=== PATIENT | female | born 1950 | race Caucasian/White ===

== ENCOUNTER → 2017-10-20 | Outpatient (CLI) | payer OTHER ==
[~2017-10-20] MED LIST: ADULT LOW DOSE81 MG PO; ANTIVERT25 MG PO; ASPIRIN EC81 M1 PO; CALCIUM 500 +1 EAC5 PO; FISH OIL 1,2001 EAC4 PO; FLONASE 0.05%50 MCG NASAL; KRILL OIL 3001 EACH PO; LIPITOR 10 MG10 M1 PO; LIPITOR10 MG PO; LISINOPRIL20 MG PO; LOPRESSOR100 MG; LOSARTAN-HCTZ1 EAC1 PO; NORVASC5 MG PO; TOPROL XL100 MG PO; TRIAMTERENE-HC1 EAC1 PO; TRIAMTERENE/HCT1 CA1; XANAX 0.5 MG0.5 M1 PO
--- NOTE | ~2017-10-20 | EKG ---
[address] [place] [address] ELECTROCARDIOGRAM REPORT Name: FERN JAIMES [id number]: 10/20/17 Attend Phys: Alka Knapp MD Discharge: Date of : 50 Report #: [id number] THIS REPORT FOR: //name// [facility] Test Date: 2017-10-20 Test Time: 11:05:24 Pat Name: FERN JAIMES Department: Room: Gender: F Soccer Coach: Kita JARAMILLO : 1950 Requested By: Alka Knapp Order Number: [id number] MD: Logan Juárez Measurements Intervals [place] Rate: 68 P: 64 [place]: 163 QRS: -13 QRSD: 84 T: 64 QT: 393 QTc: 418 Interpretive Statements Sinus rhythm Normal tracing Compared to ECG 04/20/2014 15:47:07 No significant changes Electronically Signed On 10-20-2017 12:56:23 CDT by Logan Juárez [email or web address] <ELECTRONICALLY SIGNED> By: Logan Juárez MD, [facility] 10/20/17 [id number] Logan Juárez MD, FACC /EPI
[2017-10-20 11:00] LABS: CALCIUM 9.9 mg/dL (8.5-10.1); CREATININE 0.8 mg/dL (0.6-1.0); POTASSIUM 3.8 mmol/L (3.5-5.1)
== END ==
LOC: CV 07:33 → LABMALL 10:18
PROVIDERS: Anesthesiology
DX: Z01.818 Encounter for other preprocedural examination (principal); I10 Essential (primary) hypertension

== ENCOUNTER → 2018-05-03 | Outpatient (CLI) | payer OTHER | LOC: RAD 10:18 | DX: Z12.31 Encounter for screening mammogram for malignant neoplasm of breast (principal); I10 Essential (primary) hypertension; E78.5 Hyperlipidemia, unspecified ==

== ENCOUNTER → 2019-05-04 | Outpatient (CLI) | payer OTHER | LOC: RAD 02:01 | DX: Z12.31 Encounter for screening mammogram for malignant neoplasm of breast (principal) ==

== ENCOUNTER → 2019-09-07 | Outpatient (CLI) | payer OTHER | LOC: CAT 08:44 | DX: Z13.6 Encounter for screening for cardiovascular disorders (principal); E78.00 Pure hypercholesterolemia, unspecified; I25.10 Atherosclerotic heart disease of native coronary artery without angina pectoris ==

== ENCOUNTER 2020-03-15 07:02 | Inpatient (IN) | payer OTHER ==
[~2020-03-15] VITALS: Ht 160 cm; Wt 82.6 kg
[2020-03-15 07:09] VITALS: BP 140/82
[2020-03-15] MEDS ORDERED: AZITHROMYCIN 2250 MG PO (07:51)
[2020-03-15] MEDS ORDERED: ONDANSETRON HCL4 M2 PO (07:52)
[2020-03-15 07:53] LABS: HEMATOCRIT 44.1 % (37.0-47.0); HEMOGLOBIN 15.3 gm/dL (12.0-15.0); MCH 29.6 pg (26.0-34.0); MCHC 34.7 g/dL (28.0-37.0); MCV 85.4 fL (80.0-100.0); PLATELET COUNT 205 thou/uL (150-400); RBC 5.17 mil/uL (4.20-5.00); WBC 9.2 thou/uL (4.0-11.0)
--- NOTE | 2020-03-15 08:29 | EKG ---
[facility] [place] [address] ELECTROCARDIOGRAM REPORT Name: FERN JAIMES Room #: [facility].#: [id number] Admission: 03/15/20 Attend Phys: Discharge: Date of : 50 Report #: [id number] THIS REPORT FOR: cc: Eh Lozada MD, Neal A. MD Couchonnal, Luis F. MD ~ THIS REPORT FOR: //name// [facility] ED Test Date: 2020-03-15 Test Time: 07:36:28 Pat Name: FERN JAIMES Department: Room: Gender: F Summer Associate: : 1950 Requested By: Von Otero Order Number: [id number] : Hunter Adrian Measurements Intervals [place] Rate: 64 P: 30 [place]: 154 QRS: -19 QRSD: 91 T: 66 QT: 419 QTc: 433 Interpretive Statements Sinus rhythm Probable left atrial enlargement Borderline left axis deviation RSR' in V1 or V2, probably normal variant Compared to ECG 10/20/2017 11:05:24 RSR' in V1 or V2 now present Electronically Signed On 03-15-2020 8:29:04 CDT by Hunter Adrian [email or web address] <ELECTRONICALLY SIGNED> By: Hunter Adrian MD 03/15/2029 5 5 Hunter Adrian MD /EPI
[2020-03-15 08:32] LABS: ALBUMIN 3.9 g/dL (3.4-5.0); BUN 15 mg/dL (7-18); CALCIUM 8.9 mg/dL (8.5-10.1); CHLORIDE 82 mmol/L (98-107); CO2 25 mmol/L (21-32); CREATININE 0.9 mg/dL (0.6-1.0); DIRECT BILIRUBIN 0.3 mg/dL (<0.1-0.2); GLUCOSE 133 mg/dL (74-106); SGOT 17 U/L (15-37); SGPT 26 U/L (30-65); TOTAL BILIRUBIN 1.5 mg/dL (0.2-1.0); TOTAL PROTEIN 7.5 g/dL (6.4-8.2); TROPONIN-I <0.06 ng/mL (<0.06)
[2020-03-15 08:38] LABS: ANION GAP 12 mmol/L (7-16)
[2020-03-15 08:40] LABS: POTASSIUM 2.9 mmol/L (3.5-5.1); SODIUM 119 mmol/L (136-145)
[2020-03-15 09:22] VITALS: BP 138/82
[2020-03-15 09:32] VITALS: BP 138/82
[2020-03-15 11:16] LABS: URINE BILIRUBIN NEGATIVE (Negative); URINE BLOOD TRACE (Negative); URINE CLARITY CLEAR; URINE COLOR YELLOW; URINE GLUCOSE-RANDOM* NEGATIVE (Negative); URINE KETONES 1+ (Negative); URINE LEUKOCYTES-REFLEX NEGATIVE (Negative); URINE NITRITE-REFLEX NEGATIVE (Negative); URINE PROTEIN (DIPSTICK) NEGATIVE (Negative); URINE SPECIFIC GRAVITY 1.015 (1.005-1.035); URINE UROBILINOGEN 0.2 E.U./dl (0.2-1.0)
--- NOTE | 2020-03-15 11:35 | NUR ---
PT ADMITTED TO 3W, ROOM 357. PT ALERT AND OREINTED X4, DENIES CHEST PAIN, NAUSEA AND VOMITTING. PT IS ON ROOM AIR, LUNGS CLEAR, PT HAS A PRODUCTIVE COUGH. PT ORIENTED TO ROOM VITAL SIGNS AND TELEMETRY PLACED ON PT, SINUS RHYTHM. PT SIGNED CONSENT, UP AD BASILIO TO BEDSIDE COMMODE DUE TO IV PUMP. PT DENIES ANY NEEDS AT THE MOMENT. WILL CONTINUE TO MONITOR.
[2020-03-15 11:45] VITALS: BP 137/69
[2020-03-15 12:39] LABS: ABSOLUTE NEUTROPHILS 7.2 thou/uL (1.4-8.2); ANISOCYTOSIS SLIGHT
[2020-03-15 15:34] VITALS: BP 122/74
--- NOTE | 2020-03-15 16:17 | NUR ---
INITIAL ASSESSMENT: Received consult. SW reviewed chart and spoke with nursing. Pt was admitted from home due to recent hx of nausea/vomiting/diarrhea. Pt placed in Enhanced Isolation to r/o COVID-19. Pt has had recent exposure to COVID-19. Test is pending at this time. Pt is afebrile and not requiring O2. Pt is on IV fluids. SW spoke with pt via phone. Introduced role of SW. Pt is alert/orientated x 4. Pt lives at home with her . Prior to admission, pt was independent with ADLs. No use of DME. Pt is a retired physical therapist. She used to work with [employer]. Pt's son who is an EMT tested positive for COVID last week. Pt's PCP is Dr. Lozada. Plan is for pt to return home when medically stable. SW is following to assist as needed with discharge planning.
[2020-03-15 20:03] VITALS: BP 93/52
[2020-03-16 03:13] VITALS: BP 90/54
[2020-03-16 06:11] VITALS: BP 128/74
--- NOTE | 2020-03-16 06:39 | NUR ---
Assumed pt care at 1900. A/OX4,denies pain, N/V on assessment verbalizes feeling better than yesterday. Up ad viet in room, voiding per BSC. Pt did have aunformed BM this morning. BP on the lower side at 0400 90/54,PO intake encouraged and BP up to 128/72. IVF infusing via RAC w/o problems. Encouraged to voice needs as needed.
[2020-03-16 07:02] LABS: CALCIUM 8.3 mg/dL (8.5-10.1); CREATININE 0.8 mg/dL (0.6-1.0)
[2020-03-16] MEDS ORDERED: ONDANSETRON ODT4 MG PO (07:52)
[2020-03-16 08:07] VITALS: BP 118/69
--- NOTE | 2020-03-16 09:55 | NUR ---
DISCHARGE NOTE: SW reviewed chart and spoke with nursing. Pt is in Enhanced Isolation due to COVID-19. Test was positive. Pt is medically stable to discharge home today. Discharge orders/summary finalized. SW spoke with pt via phone to discuss discharge. Pt states she does not have any discharge needs. Pt has good family support who can assist as needed while pt and spouse are at home in quarantine. Pt's family to provide transportation home today around 1100. No additional SW needs identified at this time, but is available to assist should needs arise.
[2020-03-16 09:59] VITALS: BP 118/69
--- NOTE | 2020-03-16 10:21 | NUR ---
PT CARE ASSUMED AT 0700, PT ALERT AND ORIENTED X4, PT DENIES CHEST PAIN, NAUSEA AND VOMITING. PT IS ON ROOM AIR, NO SIGNS OF DISTRESS NOTED. PT BP 119/69, DR. GHOTRA PAGED ABOUT GIVING 100MG METOPROLOL, HE IS OKAY WITH US GIVING 100 LOPRESSOR. PT DENIES ANY NEEDS RANDY. TABLE AND CALL LIGHT IN REACH.WILL CONTINUE TO MONITOR.
--- NOTE | 2020-03-16 11:29 | NUR ---
DISCGARGE ODERS, NEW MEDICATION INFORMATION GIVEN TO PT. COVID RESOURCE INFORMATION GIVEN TO PT WELL. TELE TAKEN OFF. IV TAKEN OFF.
== END 2020-03-16 11:33 | disposition home or self-care (01) | DRG 178 ==
LOC: ER 07:02 → 3W 09:41 → EROBS 09:41 → 3W 09:55
PROVIDERS: Emergency Medicine; ADMIT Family Medicine; ATTEND Family Medicine
DX: U07.1 COVID-19 (principal); E87.1 Hypo-osmolality and hyponatremia; Z91.041 Radiographic dye allergy status; E87.6 Hypokalemia; I10 Essential (primary) hypertension; Z79.899 Other long term (current) drug therapy
CPT/HCPCS: 10879

== ENCOUNTER → 2020-05-07 | Outpatient (CLI) | payer OTHER ==
[~2020-05-07] MED LIST changes: +AZITHROMYCIN 2250 MG PO; +ONDANSETRON HCL4 M2 PO; +ONDANSETRON ODT4 MG PO
== END ==
LOC: BC 13:04
PROVIDERS: ATTEND Obstetrics & Gynecology
DX: Z12.31 Encounter for screening mammogram for malignant neoplasm of breast (principal)

== ENCOUNTER → 2021-05-08 | Outpatient (CLI) | payer OTHER | LOC: BC 10:10 | PROVIDERS: ATTEND Obstetrics & Gynecology | DX: Z12.31 Encounter for screening mammogram for malignant neoplasm of breast (principal); N64.89 Other specified disorders of breast ==